=== PATIENT | female | born 1950 | race Caucasian/White ===

== ENCOUNTER 2018-04-04 17:21 | Emergency (ER) | payer OTHER, BC ==
[2018-04-04 19:28] LABS: Absolute Lymphocytes (CBC) 1.4 K/uL (0.7-4.9); Absolute Monocytes 0.6 K/uL (0.1-1.3); Absolute Neutrophil 3.6 K/uL (1.8-8.0); Basophils % 1.3 % (0-1.3); Hematocrit 38.6 % (36.0-45.0); Lymphocytes % 23.3 % (15.3-44.8); MCH 34.9 pg (27.0-35.0); MCV 101.5 fL (80-100); MPV 9.2 fL (7.6-11.3); Monocytes % 11.1 % (3.3-12.3); RBC Red Blood Cell Count 3.81 M/uL (3.86-4.86)
[2018-04-04 19:35] LABS: Barbiturates NEGATIVE (NEGATIVE); Benzodiazepines NEGATIVE (NEGATIVE); Cocaine NEGATIVE (NEGATIVE); METHAMPHETAM NEGATIVE (NEGATIVE); Opiates NEGATIVE (NEGATIVE); Phencyclidine NEGATIVE (NEGATIVE); THC Cannibis NEGATIVE (NEGATIVE)
[2018-04-04 19:38] LABS: Protime INR 1.05
--- NOTE | 2018-04-04 19:38 | RAD REPORT ---
EXAM DESCRIPTION: Lianet Single View04/04/2018 7:01 pm CLINICAL HISTORY: cough COMPARISON: 2011 FINDINGS: The lungs appear clear of acute infiltrate. The heart is probably upper limits normal IMPRESSION: No acute abnormalities displayed
[2018-04-04 19:41] LABS: Glucose Level 71 mg/dL (65-120)
--- NOTE | 2018-04-04 19:41 | RAD REPORT ---
EXAM DESCRIPTION: CT - Head Brain Wo Cont - 04/04/2018 7:26 pm CLINICAL HISTORY: Dizziness COMPARISON: February 2017 TECHNIQUE: Computed axial tomography of the head was obtained. IV contrast was not requested. All CT scans are performed using dose optimization technique as appropriate and may include automated exposure control or mA/KV adjustment according to patient size. FINDINGS: An intracranial bleed is not seen . The ventricles are normal in caliber. No extra-axial fluid collection is noted. Mild to moderate low-density areas within periventricular, deep and subcortical white matter likely represent ischemic changes secondary to small vessel disease . Fluid within the sinuses/ mastoids is not seen. IMPRESSION: No acute intracranial abnormality is seen. If patient's symptoms persist MRI of the bra in would be recommended.
[2018-04-04 19:47] LABS: ALT/SGPT 36 IU/L (10-60); AST/SGOT 52 IU/L (10-42); Albumin 4.5 g/dL (3.2-5.5); Alkaline Phosphatase 106 IU/L (42-121); BUN Blood Urea Nitrogen 24 mg/dL (6-20); Bilirubin Direct 0.2 mg/dL (0-0.2); Bilirubin Total 1.1 mg/dL (0.3-1.2); Creatine Phosphokinase 132 IU/L (22-269); Magnesium 1.7 mg/dL (1.8-2.5); Protein, Total 7.9 g/dL (6.0-8.3)
[2018-04-04] MEDS ORDERED: NA CHLORIDE 0.9% 1,000 ML ONE ×2 (19:48→20:18)
[2018-04-04 19:49] LABS: Bicarbonate 15 mEq/L (21-31); Potassium 4.6 mEq/L (3.6-5.0); Sodium Level 134 mEq/L (135-145)
[2018-04-04 19:50] LABS: CKMB Creatine Kinase MB 3.9 ng/ml (0.3-4.0)
[2018-04-04 19:54] LABS: Urine Blood NEGATIVE (NEG); Urine Glucose NEGATIVE (NEG); Urine Protein NEGATIVE (NEG)
[2018-04-04 19:57] LABS: Alcohol Serum/Plasma < 10 mg/dl
[2018-04-04] MEDS ORDERED: MAGNESIUM SULFATE 1 gm IVPB 1 GM/100 ML BAG IV ONE (20:17)
--- NOTE | 2018-04-04 21:02 | ER ---
Nurse's Notes [facility] Name: Ada Huerta Age: 67 yrs Sex: Female : 1950 Arrival Date: 04/04/2018 Time: 17:31 Bed 30 Private MD: Diagnosis: Altered mental status, unspecified Presentation: 04/04 17:44 Presenting complaint: EMS states: Pt. arrived by EMS from home... friend called 911. rk2 Pt. returned from a cruise ship where she was seen and dx with anxiety. Pt. states that she has been feeling anxious over that past few days. Pt. also wants to speak with a psychiatrist because she feels as if she isn't thinking normal... denies hearing voiced, visual disturbances, or thoughts of harming herself or others. She said that she has seen one in the past and feels that she could benefit from one now so that she can have home health assist her \T\ home. Transition of care: patient was not received from another setting of care. Onset of symptoms was April 04, 2018. Risk Assessment: Do you want to hurt yourself or someone else? Patient reports no desire to harm self or others. Initial Sepsis Screen: Does the patient meet any 2 criteria? No. Patient's initial sepsis screen is negative. Does the patient have a suspected source of infection? No. Patient's initial sepsis screen is negative. Care prior to arrival: IV initiated. 20 GA, in the right antecubital area. 17:44 Method Of Arrival: [facility]: [facility] 17:44 Acuity: ELIZ 2 rk2 17:44 Acuity: ELIZ 3 rk2 Triage Assessment: 18:00 General: Appears in no apparent distress. well developed, well nourished, Behavior is rk2 calm, cooperative. Pain: Denies pain. EENT: No signs and/or symptoms were reported regarding the EENT system. Neuro: Level of Consciousness is alert, obeys commands, Oriented to person, place, time, situation, Slow and methodical when answering questions. . 18:00 Cardiovascular: No deficits noted. Rhythm is sinus rhythm. Respiratory: No deficits rk2 noted. Airway is patent Respiratory effort is even, unlabored, Respiratory pattern is regular, symmetrical. GI: No signs and/or symptoms were reported involving the gastrointestinal system. Derm: Skin is pink, warm \T\ dry. Historical: - Allergies: 17:50 No Known Allergies; rk2 - PMHx: 17:50 Hypertension; Anxiety; rk2 - Immunization history:: Adult Immunizations unknown. - Ebola Screening: : Patient negative for fever greater than or equal to 101.5 degrees Fahrenheit, and additional compatible Ebola Virus Disease symptoms. - Family history:: not pertinent. - Social history:: Smoking status: unknown. Screenin:00 Abuse screen: Denies threats or abuse. rk2 18:00 Nutritional screening: No deficits noted. Tuberculosis screening: No symptoms or risk rk2 factors identified. Fall Risk Assessment: 18:00 Reassessment: Pt able to move all extremities, no noted facial droop or slurred speech. rk2 18:59 Reassessment: Called and spoke with Rosy Peterson regarding pt.... Per her rk2 friend/employee pt. is normally alert and oriented. This is not pt. normal behavior. Pt. sent her a text on Thursday; which made no sense to her friend and pt. sounded confused \T\ that time. Rosy spoke with pt. yesterday and pt. was talkative and sounded normal. Pt. was seen in [place] for feet swelling once she left her cruise early. 19:02 Reassessment: Rosy Peterson . Kelsey Rose . rk2 22:02 Reassessment: Called report to receiving RN... EMS called, pt. to be transported. rk2 22:24 Reassessment: EMS arrived, report and care turned over... pt. placed onto stretcher and rk2 transported. Vital Signs: 17:51 BP 113 / 89; Pulse 99; Resp 17; Temp 98.4; Pulse Ox 100% on R/A; rk2 19:00 BP 154 / 86; Pulse 86; Resp 18; Pulse Ox 100% on R/A; rk2 21:00 BP 151 / 88; Pulse 102; Resp 17; Pulse Ox 100% on R/A; rk2 22:00 BP 143 / 86; Pulse 99; Resp 17; Pulse Ox 100% on R/A; rk2 ED Course: 17:31 Patient arrived in ED. iw 17:44 Myrna Mao, RN is Primary Nurse. rk2 17:49 Triage completed. rk2 18:00 Patient has correct armband on for positive identification. Bed in low position. Call rk2 light in reach. Side rails up X2. conveyor monitor on. Pulse ox on. 18:00 Arm band placed on. rk2 18:03 EKG done, by ED staff. jb1 18:22 Rogelio Holman MD is Attending Physician. jerry 19:03 XRAY Chest (1 view) In Process Unspecified. EDMS 19:14 Kannan Mccollum PA is PHCP. jr8 19:[address] tl3 19:20 Inserted saline lock: 20 gauge in left forearm, using aseptic technique. Blood tl3 collected. 19:26 CT completed. Patient moved back from CT. cw1 19:26 CT Head Brain wo Cont In Process Unspecified. EDMS 21:14 Basic Metabolic Panel Sent. rk2 21:14 BNP Sent. rk2 21:14 Ckmb Sent. rk2 21:14 CBC with Diff Sent. rk2 21:14 CPK Sent. rk2 21:14 LFT's Sent. rk2 21:15 Magnesium Sent. rk2 21:15 PT-INR Sent. rk2 21:15 Ptt, Activated Sent. rk2 22:24 No provider procedures requiring assistance completed. Patient transferred, IV remains rk2 in place. Administered Medications: 19:54 Drug: NS 0.9% 1000 ml Route: IV; Rate: 1 bolus; Site: left forearm; Delivery: Primary tl3 tubing; 21:00 Follow up: Response: No adverse reaction; IV Status: Completed infusion rk2 20:30 Drug: NS 0.9% 1000 ml Route: IV; Rate: 125 ml/hr; Site: left antecubital; rk2 22:26 Follow up: Response: No adverse reaction; IV Status: Completed infusion rk2 20:30 Drug: Magnesium Sulfate 1 grams Route: IVPB; Infused Over: 1 hrs; Site: left rk2 antecubital; 21:30 Follow up: Response: No adverse reaction; IV Status: Completed infusion rk2 Outcome: 21:02 ER care complete, transfer ordered by . jr8 22:24 Transferred by ground EMS to [facility]. rk2 22:24 Condition: good 22:24 Instructed on the need for transfer. 22:40 Patient left the ED. rk2 Signatures: Dispatcher [employer] EDMS Alfonzo Murrell jb1 Rogelio Holman MD MD cha Williams, Irene, RN RN Laurel Beck cw1 Kannan Mccollum PA PA jr8 Myran Mao RN RN rk2 Sheyla Camara RN RN tl3 Corrections: (The following items were deleted from the chart) 18:13 17:44 Presenting complaint: EMS states: Pt. arrived by EMS from home... friend called rk2 911. Pt. returned from a cruise ship where she was seen and dx with anxiety. Pt. states that she has been feeling anxious over that past few days. Pt. also wants to speak with a psychiatrist because she feels as if she isn't thinking normal... denies hearing voiced, visual disturbances, or thoughts of harming herself or others. She said that she has seen one in the pasts and feels that she could benefit from one now so that she can have home health assist her \T\ home. rk2
--- NOTE | 2018-04-04 21:02 | EDPHYS ---
Physician Documentation [facility] Name: Ada Huerta Age: 67 yrs Sex: Female : 1950 Arrival Date: 04/04/2018 Time: 17:31 Bed 30 Private MD: ED Physician Rogelio Holman HPI: 04/04 18:46 This 67 yrs old Female presents to ER via EMS with complaints of ams and jerry confusion. 18:46 The patient presents with confusion. Onset: The symptoms/episode began/occurred at an [facility] unknown time. Possible causes: unknown. Associated signs and symptoms: The patient has no apparent associated signs or symptoms. Patient's baseline: Neuro: alert but confused, Motor: no deficits, Ambulation: walks without assistance, Speech: normal, The patient has a previous history of unk hx htn and hypothyroid. Historical: - Allergies: 17:50 No Known Allergies; rk2 - PMHx: 17:50 Hypertension; Anxiety; rk2 - Immunization history:: Adult Immunizations unknown. - Ebola Screening: : Patient negative for fever greater than or equal to 101.5 degrees Fahrenheit, and additional compatible Ebola Virus Disease symptoms. - Family history:: not pertinent. - Social history:: Smoking status: unknown. ROS: 18:46 Constitutional: Negative for fever, chills, and weight loss, Eyes: Negative for injury, jerry pain, redness, and discharge, ENT: Negative for injury, pain, and discharge, Neck: Negative for injury, pain, and swelling, Cardiovascular: Negative for chest pain, palpitations, and edema, Respiratory: Negative for shortness of breath, cough, wheezing, and pleuritic chest pain, Abdomen/GI: Negative for abdominal pain, nausea, vomiting, diarrhea, and constipation, Back: Negative for injury and pain, : Negative for injury, bleeding, discharge, and swelling, MS/Extremity: Negative for injury and deformity, Skin: Negative for injury, rash, and discoloration, Psych: Negative for depression, anxiety, suicide ideation, homicidal ideation, and hallucinations, Allergy/Immunology: Negative for hives, rash, and allergies, Endocrine: Negative for neck swelling, polydipsia, polyuria, polyphagia, and marked weight changes, Hematologic/Lymphatic: Negative for swollen nodes, abnormal bleeding, and unusual bruising. 18:46 Neuro: Positive for altered mental status. Exam: 18:46 Constitutional: This is a well developed, well nourished patient who is awake, alert, jerry and in no acute distress. Head/Face: Normocephalic, atraumatic. Eyes: Pupils equal round and reactive to light, extra-ocular motions intact. Lids and lashes normal. Conjunctiva and sclera are non-icteric and not injected. Cornea within normal limits. Periorbital areas with no swelling, redness, or edema. ENT: Nares patent. No nasal discharge, no septal abnormalities noted. Tympanic membranes are normal and external auditory canals are clear. Oropharynx with no redness, swelling, or masses, exudates, or evidence of obstruction, uvula midline. Mucous membranes moist. Neck: Trachea midline, no thyromegaly or masses palpated, and no cervical lymphadenopathy. Supple, full range of motion without nuchal rigidity, or vertebral point tenderness. No Meningismus. Chest/axilla: Normal chest wall appearance and motion. Nontender with no deformity. No lesions are appreciated. Cardiovascular: Regular rate and rhythm with a normal S1 and S2. No gallops, murmurs, or rubs. Normal PMI, no JVD. No pulse deficits. Respiratory: Lungs have equal breath sounds bilaterally, clear to auscultation and percussion. No rales, rhonchi or wheezes noted. No increased work of breathing, no retractions or nasal flaring. Abdomen/GI: Soft, non-tender, with normal bowel sounds. No distension or tympany. No guarding or rebound. No evidence of tenderness throughout. Back: No spinal tenderness. No costovertebral tenderness. Full range of motion. Female : Normal external genitalia. Skin: Warm, dry with normal turgor. Normal color with no rashes, no lesions, and no evidence of cellulitis. MS/ Extremity: Pulses equal, no cyanosis. Neurovascular intact. Full, normal range of motion. Psych: Awake, alert, with orientation to person, place and time. Behavior, mood, and affect are within normal limits. 18:46 Neuro: Orientation: to person, place, Not oriented to place, time, Mentation: slow to respond, Memory: immediate memory is impaired, remote memory is impaired, recent memory is impaired, Cerebellar function: is grossly normal, is grossly normal based on the patient's age, no acute changes, Motor: moves all fours, Sensation: is normal, no obvious gross deficits, appropriate Gait: not tested. Deep tendon reflexes are 2+ (normal) in the bilateral brachioradialis, bicep, tricep and patellar and Achilles tendons, seizure activity, is not displayed by the patient. Vital Signs: 17:51 BP 113 / 89; Pulse 99; Resp 17; Temp 98.4; Pulse Ox 100% on R/A; rk2 19:00 BP 154 / 86; Pulse 86; Resp 18; Pulse Ox 100% on R/A; rk2 21:00 BP 151 / 88; Pulse 102; Resp 17; Pulse Ox 100% on R/A; rk2 22:00 BP 143 / 86; Pulse 99; Resp 17; Pulse Ox 100% on R/A; rk2 MDM: 18:22 Patient medically screened. [facility] 20:21 Data reviewed: vital signs, nurses notes, lab test result(s), EKG, radiologic studies, jr8 CT scan, plain films. Data interpreted: Pulse oximetry: on room air is 100 %. Interpretation: normal. Counseling: I had a detailed discussion with the patient and/or guardian regarding: the historical points, exam findings, and any diagnostic results supporting the discharge/admit diagnosis, lab results, radiology results, the need to transfer to another facility. 20:49 ED course: I evaluated patient after she was handed over to me. Patient has trouble jr8 with thought process. Frequently stutters. Gets off track with topic. Cannot formulate some sentences. Past history seems intact. Current problems and memory impaired. Talked to Nurse who was able to talk to employee of patient. Stated that this is very uncharacteristic of her. 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 04/04 18:28 Order name: Basic Metabolic Panel 04/04 18:28 Order name: BNP [facility] 04/04 18:28 Order name: CBC with Diff 04/04 18:28 Order name: Ckmb 04/04 18:28 Order name: CPK [facility] 04/04 18:28 Order name: LFT's [facility] 04/04 18:28 Order name: Magnesium [facility] 04/04 18:28 Order name: PT-INR [facility] 04/04 18:28 Order name: Ptt, Activated 04/04 18:28 Order name: Troponin (emerg Dept Use Only); Complete Time: 20:11 [facility] 10 18:28 Order name: Acetaminophen; Complete Time: 20:11 [facility] 10 18:28 Order name: ETOH Level; Complete Time: 20:11 [facility] 04/04 18:28 Order name: Salicylate; Complete Time: 20:22 [facility] 04/04 18:28 Order name: Urine Drug Screen; Complete Time: 20:11 [facility] 04/04 18:28 Order name: XRAY Chest (1 view); Complete Time: 19:41 [facility] 04/04 18:28 Order name: CT Head Brain wo Cont; Complete Time: 19:41 [facility] 04/04 18:28 Order name: Urine Culture [facility] 04/04 18:28 Order name: Basic Metabolic Panel; Complete Time: 20:11 [facility] 10 18:28 Order name: BNP B-Type Natriuretic Peptide; Complete Time: 20:11 [facility] 04/04 18:28 Order name: CBC with Automated Diff; Complete Time: 19:41 [facility] 10 18:29 Order name: CKMB Creatine Kinase MB; Complete Time: 20:11 [facility] 04/04 18:29 Order name: Creatine Phosphokinase; Complete Time: 20:11 [facility] 10 18:29 Order name: Liver (Hepatic) Function; Complete Time: 20:11 [facility] 0610 18:29 Order name: Magnesium; Complete Time: 20:11 [facility] 10 18:29 Order name: Protime (+INR); Complete Time: 19:41 [facility] 10 18:29 Order name: PTT, Activated Partial Thromb; Complete Time: 19:41 [facility] 10 19:26 Order name: Urine Dipstick--Ancillary (enter results); Complete Time: 20:11 [facility] 04/04 18:28 Order name: EKG; Complete Time: 18:29 [facility] 04/04 18:28 Order name: Cardiac monitoring; Complete Time: 19:28 [facility] 04/04 18:28 Order name: EKG - Nurse/Tech; Complete Time: 19:28 [facility] 04/04 18:28 Order name: IV Saline Lock; Complete Time: 19:19 [facility] 04/04 18:28 Order name: Labs collected and sent; Complete Time: 19:19 [facility] 04/04 18:28 Order name: O2 Per Protocol; Complete Time: 19:19 [facility] 04/04 18:28 Order name: O2 Sat Monitoring; Complete Time: 19:19 [facility] 04/04 18:28 Order name: Urine Dipstick-Ancillary (obtain specimen); Complete Time: 19:20 [facility] Administered Medications: 19:54 Drug: NS 0.9% 1000 ml Route: IV; Rate: 1 bolus; Site: left forearm; Delivery: Primary tl3 tubing; 21:00 Follow up: Response: No adverse reaction; IV Status: Completed infusion rk2 20:30 Drug: NS 0.9% 1000 ml Route: IV; Rate: 125 ml/hr; Site: left antecubital; rk2 22:26 Follow up: Response: No adverse reaction; IV Status: Completed infusion rk2 20:30 Drug: Magnesium Sulfate 1 grams Route: IVPB; Infused Over: 1 hrs; Site: left rk2 antecubital; 21:30 Follow up: Response: No adverse reaction; IV Status: Completed infusion rk2 Disposition: 04/05 09:07 Co-signature as Attending Physician, Rogelio Holman MD I agree with the assessment and [facility] plan of care. Disposition: 04/04/18 21:[address] [facility]. Diagnosis is Altered mental status, unspecified. - Reason for transfer: Higher level of care. - Accepting physician is Dr. Alfaro . - Condition is Stable. - Problem is new. - Symptoms are unchanged. Signatures: Dispatcher [employer] EDRogelio Khan MD MD cha Roszak, Josh, PA PA jr8 Myrna Mao RN RN rk2 Sheyla Camara RN RN tl3 Corrections: (The following items were deleted from the chart) 04/04 22:40 21:02 04/04/2018 21:[address] [facility]. Diagnosis is rk2 Altered mental status, unspecified. Reason for transfer: Higher level of care. Accepting physician is Dr. Alfaro . Condition is Stable. Problem is new. Symptoms are unchanged. jr8
[2018-04-04 23:30] VITALS: TEMP 98.4; O2SAT 100
[2018-04-04 23:43] VITALS: BP 143/86
--- NOTE | 2018-04-05 06:29 | EKG ---
Test Date: 2018-04-04 Test Time: 17:38:55 Test Kitchen Home Economist: VICKIE MEASUREMENT RESULTS: Intervals: Rate: 100 CO: 136 QRSD: 82 QT: 352 QTc: 454 Malone: P: 71 CO: 136 QRS: 56 T: 59 INTERPRETIVE STATEMENTS: Normal sinus rhythm Normal ECG Compared to ECG 08/08/2012 15:45:01 No significant changes Electronically Signed On 04-05-18 06:28:34 CDT by Chay Foreman
== END 2018-04-04 22:40 | disposition short-term general hospital (02) ==
LOC: ER 17:21
DX: R41.82 Altered mental status, unspecified (principal); I10 Essential (primary) hypertension; F41.9 Anxiety disorder, unspecified
CPT/HCPCS: 36415; 70450; 71045; 80048; 80076; 80307 ×9; 80320; 80329 ×2; 81003; 82550; 82553; 83735; 83880; 84484; 85025; 85610; 85730; 87086; 87088; 93005; J3475; J7030 ×2; 96361; 96365; 99285

== ENCOUNTER 2018-06-05 14:46 | Emergency (ER) | payer OTHER, BC ==
--- OUTSIDE RECORDS SUMMARY | 2018-06-05 14:48 | XMS REPORT | Clinical Summary ---
:1950 Author Organization [facility] Address [address] [place] [address] Phone Care Team Providers Name Role Phone Unavailable Primary Care Provider Unavailable Allergies No Known Allergies Current Medications Prescription Sig. Disp. Refills Start End Date Status Date amLODIPine (NORVASC) 5 Take 5 mg by Active MG tablet mouth daily. hydroCHLOROthiazide Take 12.5 mg Active (HYDRODIURIL) 12.5 MG by mouth tablet daily. levothyroxine Take 50 mcg Active (SYNTHROID, LEVOTHROID) by mouth 50 MCG tablet Every morning on an empty stomach. lisinopril Take 40 mg Active (PRINIVIL,ZESTRIL) 40 MG by mouth tablet daily. oxybutynin (DITROPAN-XL) Take 5 mg by Active 5 MG 24 hr tablet mouth daily. valproic acid (DEPAKENE) Take 1 90 capsule 0 04/06/04/06/20 Active 250 mg capsule capsule (250 8 19 mg total) by mouth every 8 (eight) hours. diazePAM (VALIUM) 5 MG Take 1 30 tablet 0 04/06/20 Discontinued tablet tablet (5 mg 8 18 total) by mouth every 6 (six) hours as needed for Anxiety for up to 10 days. Max Daily Amount: 20 mg valproic acid (DEPAKENE) Take 1 90 capsule 0 04/06/04/06/20 Discontinued 250 mg capsule capsule (250 8 18 mg total) by mouth every 8 (eight) hours. diazePAM (VALIUM) 5 MG Take 1 30 tablet 0 04/06/04/16/20 tablet tablet (5 mg 8 18 total) by mouth every 6 (six) hours as needed for Anxiety for up to 10 days. Max Daily Amount: 20 mg Active Problems Problem Noted Date Hypomania (HCC) 04/05/2018 Speech abnormality 04/05/2018 Essential hypertension 04/05/2018 Other specified hypothyroidism 04/05/2018 Bipolar disorder with severe meir (HCC) 04/05/2018 Encounters Date Type Specialty Care Team Description 04/26/2018 Emergency Emergency Alexander, Swelling of both lower Medicine Ronald Marquez MD extremities (Primary Dx);Bipolar 1 disorder (HCC);Essential hypertension 04/04/2018 - Hospital Encounter General Internal Aurelia, Ailyn Essential hypertension 04/07/2018 Medicine Laurence Pérez, (Primary Dx);Hypomania ([facility]);Other specified Athreya, hypothyroidism;Speech Joce Garces MD disturbance, unspecified type;Altered mental status, unspecified altered mental status type;Tremor;Acute encephalopathy;Bipolar disorder with severe meir (HCC);BOBO (acute kidney injury) ([facility]);Acute nonintractable headache, unspecified headache type;Bipolar 1 disorder, mixed, severe ([facility]) after 06/04/2017 Social History Tobacco Use Types Packs/Day Years Used Date Never Smoker Smokeless Tobacco: Never Used Alcohol Use Drinks/Week oz/Week Comments Yes Sex Assigned at Date Recorded Not on file Last Filed Vital Signs Vital Sign Reading Time Taken Blood Pressure 135/78 04/26/2018 9:21 PM CDT Pulse 84 04/26/2018 9:21 PM CDT Temperature 36.4 C (97.6 F) 04/26/2018 9:21 PM CDT Respiratory Rate 18 04/26/2018 9:21 PM CDT Oxygen Saturation 98% 04/26/2018 5:50 PM CDT Inhaled Oxygen Concentration - - Weight 54.4 kg (120 lb) 04/26/2018 5:50 PM CDT Height 160 cm (5' 3") 04/26/2018 5:50 PM CDT Body Mass Index 21.26 04/26/2018 5:50 PM CDT Plan of Treatment Not on file Results CBC with platelet count + automated diff (04/26/2018 6:20 PM)Only the most recent of4 resultswithin the time period is included. Component Value Ref Range WBC 6.7 3.5 - 10.5 K/L RBC 3.17 (L) 3.93 - 5.22 M/L Hemoglobin 10.9 (L) 11.2 - 15.7 GM/DL Hematocrit 32.2 (L) 34.1 - 44.9 % MCV 101.6 (H) 79.4 - 94.8 fL MCH 34.4 (H) 25.6 - 32.2 pg MCHC 33.9 32.2 - 35.5 GM/DL RDW 12.0 11.7 - 14.4 % Platelets 106 (L) 150 - 450 K/CU MM MPV 12.1 9.4 - 12.3 fL nRBC 0 0 - 0 /100 WBC % Neutros 52 % % Lymphs 30 % % Monos 11 % % Eos 6 % % Baso 1 % # Neutros 3.49 1.56 - 6.13 K/L # Lymphs 1.98 1.18 - 3.74 K/L # Monos 0.73 (H) 0.24 - 0.36 K/L # Eos 0.37 (H) 0.04 - 0.36 K/L # Baso 0.06 0.01 - 0.08 K/L Immature Granulocytes-Relative 0 0 - 1 % Specimen Performing Laboratory Blood - Arm, [address] [address] CBC with platelet count + automated diff (04/26/2018 6:20 PM)Only the most recent of4 resultswithin the time period is included. Specimen Performing Laboratory Blood Narrative The following orders were created for panel order CBC with platelet count + automated diff. Procedure Abnormality Status --------- ------ CBC with platelet count ...[[id number]]AbnormalFinal result Please view results for these tests on the individual orders. B-type natriuretic peptide (04/26/2018 6:20 PM) Component Value Ref Range BNP 179 (H) 0 - 100 pg/mL Specimen Performing Laboratory Blood - Arm, [address] [address] Basic metabolic panel (Na, K+, Cl, CO2, Glu, Ca, BUN, Cr) (04/26/2018 6:20 PM) Only the most recent of4 resultswithin the time period is included. Component Value Ref Range Sodium 135 (L) 136 - 145 meq/L Potassium 4.4 3.5 - 5.1 meq/L Chloride 101 98 - 107 meq/L CO2 23 22 - 29 meq/L BUN 33 (H) 7 - 21 mg/dL Creatinine 1.26 (H) 0.57 - 1.25 mg/dL Glucose 70 70 - 105 mg/dL Calcium 9.8 8.4 - 10.2 mg/dL EGFR Comment: INSUFFICIENT CLINICAL DATA TO CALCULATE mL/min/1.73 sq m ESTIMATED GFR. Specimen Performing Laboratory Blood - Arm, [address] [address] RHYTHM STRIP - SCAN (04/08/2018 3:00 PM)Magnesium (04/07/2018 4:00 AM)Only the most recent of3 resultswithin the time period is included. Component Value Ref Range Magnesium 1.9 1.6 - 2.6 mg/dL Specimen Performing Laboratory Blood - Arm, [address] [address] Hepatic function panel (04/07/2018 4:00 AM)Only the most recent of3 resultswithin the time period is included. Component Value Ref Range Protein, Total 6.9 6.0 - 8.3 gm/dL Albumin 3.9 3.5 - 5.0 g/dL Total Bilirubin 0.6 0.2 - 1.2 mg/dL Bilirubin, Direct 0.2 0.1 - 0.5 mg/dL Alkaline Phosphatase 87 40 - 150 U/L AST 28 5 - 34 U/L ALT 22 6 - 55 U/L Specimen Performing Laboratory Blood - Arm, [address] [address] EEG AWAKE AND DROWSY (04/06/2018 10:55 AM) Specimen Performing Laboratory GE RIS Narrative Date(s) of EE04/06/2018 DATE OF REPORT: 04/06/2018 ACC: [id number] EEG Number: [id number] Test Location: Inpatient Room. Start time: 10:33 Stop time: 10:55 ICD-10: R41.82 CPT Code: 39925 HISTORY: 67 y.o. F with PMH of anxiety, bipolar? HTN, hypothyroidism presents with approximately one week history of AMS. MEDICATIONS THAT COULD AFFECT EEG: None TECHNICAL SUMMARY: This is a digital video-EEG recorded with 32 input channels reviewed with bipolar and referential montages using the modified combinatorial system nomenclature. DESCRIPTION OF RECORD: During the maximally alert state a 11-12 Hz posterior dominant rhythm was seen that was symmetric, reactive to eye opening and well regulated.More anteriorly, low voltage frontocentral beta predominated.Drowsiness was characterized by alpha attenuation and increased frontocentral theta.Stage 2 sleep was not reached. SIGNIFICANT VIDEO EVENTS: None SIGNIFICANT ELECTROCARDIOGRAM EVENTS: None HV: Hyperventilation was not performed. PHOTIC STIMULATION: Photic stimulation was done from 3-18 Hz; no photic driving was seen; photoparoxysmal responses were absent. IMPRESSION: Normal Awake and Drowsy EEG Harlan Dozier MD Neurophysiology Fellow, PGY5 Carter Hopper MD Neurophysiology Attending Procedure Note Interface, External Ris In - 04/06/2018 5:51 PM CDT Date(s) of EE04/06/2018 DATE OF REPORT: 04/06/2018 ACC: [id number] EEG Number: [id number] Test Location: Inpatient Room. Start time: 10:33 Stop time: 10:55 ICD-10: R41.82 CPT Code: 64131 HISTORY: 67 y.o. F with PMH of anxiety, bipolar? HTN, hypothyroidism presents with approximately one week history of AMS. MEDICATIONS THAT COULD AFFECT EEG: None TECHNICAL SUMMARY: This is a digital video-EEG recorded with 32 input channels reviewed with bipolar and referential montages using the modified combinatorial system nomenclature. DESCRIPTION OF RECORD: During the maximally alert state a 11-12 Hz posterior dominant rhythm was seen that was symmetric, reactive to eye opening and well regulated. More anteriorly, low voltage frontocentral beta predominated. Drowsiness was characterized by alpha attenuation and increased frontocentral theta. Stage 2 sleep was not reached. SIGNIFICANT VIDEO EVENTS: None SIGNIFICANT ELECTROCARDIOGRAM EVENTS: None HV: Hyperventilation was not performed. PHOTIC STIMULATION: Photic stimulation was done from 3-18 Hz; no photic driving was seen; photoparoxysmal responses were absent. IMPRESSION: Normal Awake and Drowsy EEG Harlan Dozier MD Neurophysiology Fellow, PGY5 Carter Hopper MD Neurophysiology Attending Lactic acid, venous, whole blood (04/06/2018 6:25 AM) Component Value Ref Range Lactate, Venous 0.6 0.5 - 2.2 mmol/L Specimen Performing Laboratory Blood - Arm, [address] [address] Narrative Effective 02/27/2016: Units/Reference Range Change New: 0.5-2.2 mmol/LPrevious: 5-20 mg/dL Urinalysis w/Microscopic + Reflex to Culture (04/05/2018 6:27 AM) Component Value Ref Range Color, UA Light Yellow Clarity, UA Clear Specific [place], UA 1.007 1.001 - 1.035 pH, UA 5.0 5.0 - 8.0 Protein, UA Negative Negative Glucose, UA Negative Negative Ketones, UA 10 mg/dL (A) Negative Bilirubin, UA Negative Negative Blood, UA Negative Negative Nitrite, UA Negative Negative Leukocytes, UA Negative Negative Urobilinogen, UA 0.2 0.2 - 1.0 mg/dL RBC, UA 0 /HPF WBC, UA <1 /HPF Mucus Rare Squam Epithel, UA <1 /HPF Specimen Source Specimen Performing Laboratory Urine - Urine, [address] [address] Sodium, random urine (04/05/2018 6:27 AM) Component Value Ref Range Sodium Urine 113 meq/L Specimen Performing Laboratory Urine - Urine, [address] [address] Narrative Reference Range: No Normals Creatinine, random urine (04/05/2018 6:27 AM) Component Value Ref Range Creatinine, Ur 40.2 mg/dL Specimen Performing Laboratory Urine - Urine, Void[address] [address] Narrative Reference Range: No Normals TSH/Free T4 If Indicated (04/05/2018 4:45 AM) Component Value Ref Range TSH 1.57 0.35 - 4.94 uIU/mL Specimen Performing Laboratory Blood - Arm, [address] [address] RPR (04/05/2018 4:45 AM) Component Value Ref Range RPR Nonreactive Nonreactive Specimen Performing Laboratory Blood - Arm, Left [facility] [address] after 06/04/2017
--- OUTSIDE RECORDS SUMMARY | 2018-06-05 14:49 | XMS REPORT ---
:1950 [facility] Address [address] [place] [address] Care Team Providers Name Role Phone ROSSI LUU ANNA Unavailable Unavailable DENG LAGUERRE Unavailable Unavailable Problems This patient has no known problems. Allergies, Adverse Reactions, Alerts This patient has no known allergies or adverse reactions. Medications This patient has no known medications. Results Test Description Test Time Test Comments Text Results Atomic Results Result Comments B-TYPE NATRIURETIC FACTOR (BNP) 2018-04-26 18:58:00 Test Item Value Reference Range Comments B-TYPE NATRIURETIC PEPTIDE (BEAKER) (test odii=947) 179 pg/mL 0-100 BASIC METABOLIC [id number] 18:57:00 Test Item Value Reference Range Comments SODIUM (BEAKER) (test 135 meq/L 136-145 yryl=329) POTASSIUM (BEAKER) (test 4.4 meq/L 3.5-5.1 ensy=714) CHLORIDE (BEAKER) (test 101 meq/L 98-107 xpgn=196) CO2 (BEAKER) (test 23 meq/L 22-29 hzci=680) BLOOD UREA NITROGEN 33 mg/dL 7-21 (BEAKER) (test vmlz=749) CREATININE (BEAKER) (test 1.26 mg/dL 0.57-1.25 yuwb=577) GLUCOSE RANDOM (BEAKER) 70 mg/dL 70-105 (test glct=416) CALCIUM (BEAKER) (test 9.8 mg/dL 8.4-10.2 gdlh=247) EGFR (BEAKER) (test mL/min/1.73 sq m INSUFFICIENT CLINICAL DATA tbmy=7007) TO CALCULATE ESTIMATED GFR. CBC W/PLT COUNT & AUTO [id number] 18:26:00 Test Item Value Reference Range Comments WHITE BLOOD CELL COUNT (BEAKER) (test adux=290) 6.7 K/ L 3.5-10.5 RED BLOOD CELL COUNT (BEAKER) (test afrs=980) 3.17 M/ L 3.93-5.22 HEMOGLOBIN (BEAKER) (test nmoc=026) 10.9 GM/DL 11.2-15.7 HEMATOCRIT (BEAKER) (test sgtw=314) 32.2 % 34.1-44.9 MEAN CORPUSCULAR VOLUME (BEAKER) (test ielv=792) 101.6 fL 79.4-94.8 MEAN CORPUSCULAR HEMOGLOBIN (BEAKER) (test 34.4 pg 25.6-32.2 nfgg=361) MEAN CORPUSCULAR HEMOGLOBIN CONC (BEAKER) (test 33.9 GM/DL 32.2-35.5 uilh=582) RED CELL DISTRIBUTION WIDTH (BEAKER) (test 12.0 % 11.7-14.4 dzut=784) PLATELET COUNT (BEAKER) (test npea=072) 106 K/CU MM 150-450 MEAN PLATELET VOLUME (BEAKER) (test bbxn=477) 12.1 fL 9.4-12.3 NUCLEATED RED BLOOD CELLS (BEAKER) (test 0 /100 WBC 0-0 jfqy=943) NEUTROPHILS RELATIVE PERCENT (BEAKER) (test 52 % qgkv=511) LYMPHOCYTES RELATIVE PERCENT (BEAKER) (test 30 % byru=855) MONOCYTES RELATIVE PERCENT (BEAKER) (test 11 % mlei=358) EOSINOPHILS RELATIVE PERCENT (BEAKER) (test 6 % wrey=753) BASOPHILS RELATIVE PERCENT (BEAKER) (test 1 % zhyt=961) NEUTROPHILS ABSOLUTE COUNT (BEAKER) (test 3.49 K/ L 1.56-6.13 blzv=796) LYMPHOCYTES ABSOLUTE COUNT (BEAKER) (test 1.98 K/ L 1.18-3.74 bcqc=491) MONOCYTES ABSOLUTE COUNT (BEAKER) (test 0.73 K/ L 0.24-0.36 fvqi=776) EOSINOPHILS ABSOLUTE COUNT (BEAKER) (test 0.37 K/ L 0.04-0.36 ufyy=712) BASOPHILS ABSOLUTE COUNT (BEAKER) (test 0.06 K/ L 0.01-0.08 vhwg=475) IMMATURE GRANULOCYTES-RELATIVE PERCENT (BEAKER) 0 % 0-1 (test kxgb=9806) BASIC METABOLIC [id number] 05:31:00 Test Item Value Reference Range Comments SODIUM (BEAKER) (test 141 meq/L 136-145 xebf=621) POTASSIUM (BEAKER) (test 4.7 meq/L 3.5-5.1 huwx=341) CHLORIDE (BEAKER) (test 107 meq/L 98-107 rgij=489) CO2 (BEAKER) (test 24 meq/L 22-29 pnxt=496) BLOOD UREA NITROGEN 24 mg/dL 7-21 (BEAKER) (test ilth=167) CREATININE (BEAKER) (test 1.10 mg/dL 0.57-1.25 ttsm=081) GLUCOSE RANDOM (BEAKER) 96 mg/dL 70-105 (test fpwz=002) CALCIUM (BEAKER) (test 10.0 mg/dL 8.4-10.2 hfwj=295) EGFR (BEAKER) (test mL/min/1.73 sq m INSUFFICIENT CLINICAL DATA gcyt=6083) TO CALCULATE ESTIMATED GFR. [id number] 05:20:00 Test Item Value Reference Range Comments MAGNESIUM (BEAKER) (test itpi=497) 1.9 mg/dL 1.6-2.6 HEPATIC FUNCTION [id number] 05:20:00 Test Item Value Reference Range Comments TOTAL PROTEIN (BEAKER) (test kyvw=632) 6.9 gm/dL 6.0-8.3 ALBUMIN (BEAKER) (test bsvx=3730) 3.9 g/dL 3.5-5.0 BILIRUBIN TOTAL (BEAKER) (test zoen=656) 0.6 mg/dL 0.2-1.2 BILIRUBIN DIRECT (BEAKER) (test xkjv=128) 0.2 mg/dL 0.1-0.5 ALKALINE PHOSPHATASE (BEAKER) (test zfpi=275) 87 U/L 40-150 AST (SGOT) (BEAKER) (test bsxr=433) 28 U/L 5-34 ALT (SGPT) (BEAKER) (test voac=441) 22 U/L 6-55 CBC W/PLT COUNT & AUTO [id number] 04:49:00 Test Item Value Reference Range Comments WHITE BLOOD CELL COUNT (BEAKER) (test sepr=095) 4.9 K/ L 3.5-10.5 RED BLOOD CELL COUNT (BEAKER) (test qfmc=321) 3.66 M/ L 3.93-5.22 HEMOGLOBIN (BEAKER) (test mfoj=376) 12.5 GM/DL 11.2-15.7 HEMATOCRIT (BEAKER) (test jbxo=813) 37.8 % 34.1-44.9 MEAN CORPUSCULAR VOLUME (BEAKER) (test baxa=417) 103.3 fL 79.4-94.8 MEAN CORPUSCULAR HEMOGLOBIN (BEAKER) (test 34.2 pg 25.6-32.2 kiqq=911) MEAN CORPUSCULAR HEMOGLOBIN CONC (BEAKER) (test 33.1 GM/DL 32.2-35.5 sfby=807) RED CELL DISTRIBUTION WIDTH (BEAKER) (test 12.9 % 11.7-14.4 iyjp=218) PLATELET COUNT (BEAKER) (test eujv=513) 237 K/CU MM 150-450 MEAN PLATELET VOLUME (BEAKER) (test pxli=162) 10.2 fL 9.4-12.3 NUCLEATED RED BLOOD CELLS (BEAKER) (test 0 /100 WBC 0-0 pjjx=357) NEUTROPHILS RELATIVE PERCENT (BEAKER) (test 47 % oevf=843) LYMPHOCYTES RELATIVE PERCENT (BEAKER) (test 31 % bdfh=901) MONOCYTES RELATIVE PERCENT (BEAKER) (test 14 % biyk=002) EOSINOPHILS RELATIVE PERCENT (BEAKER) (test 6 % elhq=361) BASOPHILS RELATIVE PERCENT (BEAKER) (test 1 % htff=410) NEUTROPHILS ABSOLUTE COUNT (BEAKER) (test 2.27 K/ L 1.56-6.13 vjes=314) LYMPHOCYTES ABSOLUTE COUNT (BEAKER) (test 1.52 K/ L 1.18-3.74 bulh=102) MONOCYTES ABSOLUTE COUNT (BEAKER) (test 0.70 K/ L 0.24-0.36 nfsk=731) EOSINOPHILS ABSOLUTE COUNT (BEAKER) (test 0.29 K/ L 0.04-0.36 rcob=086) BASOPHILS ABSOLUTE COUNT (BEAKER) (test 0.07 K/ L 0.01-0.08 stdh=780) IMMATURE GRANULOCYTES-RELATIVE PERCENT (BEAKER) 0 % 0-1 (test usbs=3403) EEG AWAKE AND [id number] 17:51:00Reason for exam:->altered mental status, new tremorsDate(s) of EE04/06/2018 DATE OF REPORT: 04/06/2018 ACC: [id number] EEG Number: [id number] Test Location: Inpatient Room. Start time: 10:33 Stop time: 10:55 ICD-10: R41.82 CPT Code: 40295 HISTORY: 67 y.o. F with PMH of anxiety, bipolar? HTN, hypothyroidism presents with approximately one week history of AMS. MEDICATIONS THAT COULD AFFECT EEG: None TECHNICAL SUMMARY: This is a digital video-EEG recorded with 32 input channels reviewed with bipolar and referential montages using the modified combinatorial system nomenclature. DESCRIPTION OF RECORD: During the maximally alert state a 11- 12 Hz posterior dominant rhythm was seen that was symmetric, reactive to eye opening and well regulated. More anteriorly, low voltage frontocentral beta predominated. Drowsiness was characterized by alpha attenuation and increased frontocentral theta. Stage 2 sleep was not reached. SIGNIFICANT VIDEO EVENTS : None SIGNIFICANT ELECTROCARDIOGRAM EVENTS: None HV: Hyperventilation was not performed. PHOTIC STIMULATION: Photic stimulation was done from 3-18 Hz; no photic driving was seen; photoparoxysmalresponses were absent. IMPRESSION: Normal Awake and Drowsy EEG Harlan Dozier MD Neurophysiology Fellow, PGY5 Carter Argueta MD Neurophysiology Attending CBC W/PLT COUNT & AUTO [id number] 08:06:00 Test Item Value Reference Range Comments WHITE BLOOD CELL COUNT (BEAKER) (test psqe=097) 4.3 K/ L 3.5-10.5 RED BLOOD CELL COUNT (BEAKER) (test kwke=140) 3.23 M/ L 3.93-5.22 HEMOGLOBIN (BEAKER) (test mjjj=028) 11.2 GM/DL 11.2-15.7 HEMATOCRIT (BEAKER) (test tfow=183) 32.8 % 34.1-44.9 MEAN CORPUSCULAR VOLUME (BEAKER) (test rljw=396) 101.5 fL 79.4-94.8 MEAN CORPUSCULAR HEMOGLOBIN (BEAKER) (test 34.7 pg 25.6-32.2 pvxw=324) MEAN CORPUSCULAR HEMOGLOBIN CONC (BEAKER) (test 34.1 GM/DL 32.2-35.5 rbaw=133) RED CELL DISTRIBUTION WIDTH (BEAKER) (test 12.8 % 11.7-14.4 pkrk=328) PLATELET COUNT (BEAKER) (test bntb=397) 196 K/CU MM 150-450 MEAN PLATELET VOLUME (BEAKER) (test vgmx=549) 10.3 fL 9.4-12.3 NUCLEATED RED BLOOD CELLS (BEAKER) (test 0 /100 WBC 0-0 usrd=214) NEUTROPHILS RELATIVE PERCENT (BEAKER) (test 47 % ejzu=874) LYMPHOCYTES RELATIVE PERCENT (BEAKER) (test 30 % immb=523) MONOCYTES RELATIVE PERCENT (BEAKER) (test 16 % mvxt=923) EOSINOPHILS RELATIVE PERCENT (BEAKER) (test 5 % quxp=576) BASOPHILS RELATIVE PERCENT (BEAKER) (test 2 % ohiy=930) NEUTROPHILS ABSOLUTE COUNT (BEAKER) (test 2.01 K/ L 1.56-6.13 agfq=117) LYMPHOCYTES ABSOLUTE COUNT (BEAKER) (test 1.29 K/ L 1.18-3.74 atrr=392) MONOCYTES ABSOLUTE COUNT (BEAKER) (test 0.70 K/ L 0.24-0.36 tpjh=637) EOSINOPHILS ABSOLUTE COUNT (BEAKER) (test 0.22 K/ L 0.04-0.36 aysn=248) BASOPHILS ABSOLUTE COUNT (BEAKER) (test 0.07 K/ L 0.01-0.08 pdxr=937) IMMATURE GRANULOCYTES-RELATIVE PERCENT (BEAKER) 1 % 0-1 (test oocf=9505) BASIC METABOLIC [id number] 07:23:00 Test Item Value Reference Range Comments SODIUM (BEAKER) (test 138 meq/L 136-145 bmlc=928) POTASSIUM (BEAKER) (test 4.3 meq/L 3.5-5.1 flhx=606) CHLORIDE (BEAKER) (test 109 meq/L 98-107 qotf=339) CO2 (BEAKER) (test 20 meq/L 22-29 pkgx=680) BLOOD UREA NITROGEN 29 mg/dL 7-21 (BEAKER) (test ejkr=529) CREATININE (BEAKER) (test 1.19 mg/dL 0.57-1.25 uzan=334) GLUCOSE RANDOM (BEAKER) 98 mg/dL 70-105 (test emsg=417) CALCIUM (BEAKER) (test 8.9 mg/dL 8.4-10.2 bpze=195) EGFR (BEAKER) (test mL/min/1.73 sq m INSUFFICIENT CLINICAL DATA jsnh=5212) TO CALCULATE ESTIMATED GFR. [id number] 07:21:00 Test Item Value Reference Range Comments MAGNESIUM (BEAKER) (test fosn=366) 1.6 mg/dL 1.6-2.6 HEPATIC FUNCTION [id number] 07:21:00 Test Item Value Reference Range Comments TOTAL PROTEIN (BEAKER) (test wmls=865) 6.4 gm/dL 6.0-8.3 ALBUMIN (BEAKER) (test jazq=8496) 3.6 g/dL 3.5-5.0 BILIRUBIN TOTAL (BEAKER) (test gebn=537) 0.4 mg/dL 0.2-1.2 BILIRUBIN DIRECT (BEAKER) (test hxjr=530) 0.2 mg/dL 0.1-0.5 ALKALINE PHOSPHATASE (BEAKER) (test herm=706) 97 U/L 40-150 AST (SGOT) (BEAKER) (test ggse=382) 27 U/L 5-34 ALT (SGPT) (BEAKER) (test fyab=764) 22 U/L 6-55 LACTIC ACID, VENOUS, WHOLE [id number] 07:13:00 Test Item Value Reference Range Comments LACTATE BLOOD VENOUS (2) (BEAKER) (test 0.6 mmol/L 0.5-2.2 izll=4896) Effective 02/27/2016: Units/Reference Range ChangeNew: 0.5-2.2 mmol/L Previous: 5 -20 mg/[id number] 00:04:00 Test Item Value Reference Range Comments RPR SCREEN (BEAKER) (test mctf=842) Nonreactive Nonreactive CREATININE, RANDOM [id number] 08:39:00 Test Item Value Reference Range Comments CREATININE URINE (BEAKER) (test fjod=114) 40.2 mg/dL Reference Range: No NormalsSODIUM, RANDOM [id number] 08:39:00 Test Item Value Reference Range Comments SODIUM URINE (BEAKER) (test tzpp=633) 113 meq/L Reference Range: No NormalsURINALYSIS W/ REFLEX URINE [id number] 08:02:00 Test Item Value Reference Range Comments COLOR (BEAKER) (test atwt=939) Light Yellow CLARITY (BEAKER) (test ygnt=272) Clear SPECIFIC GRAVITY UA (BEAKER) (test mkrw=703) 1.007 1.001-1.035 PH UA (BEAKER) (test ypyz=389) 5.0 5.0-8.0 PROTEIN UA (BEAKER) (test qbrg=146) Negative Negative GLUCOSE UA (BEAKER) (test oyta=451) Negative Negative KETONES UA (BEAKER) (test ygrr=382) 10 mg/dL Negative BILIRUBIN UA (BEAKER) (test lmbj=505) Negative Negative BLOOD UA (BEAKER) (test yadg=926) Negative Negative NITRITE UA (BEAKER) (test tfmg=917) Negative Negative LEUKOCYTE ESTERASE UA (BEAKER) (test yzlo=828) Negative Negative UROBILINOGEN UA (BEAKER) (test tcej=233) 0.2 mg/dL 0.2-1.0 RBC UA (BEAKER) (test kioe=168) 0 /HPF WBC UA (BEAKER) (test vwjw=994) < /HPF MUCUS (BEAKER) (test lwik=7671) Rare SQUAMOUS EPITHELIAL (BEAKER) (test yupm=471) < /HPF SOURCE(BEAKER) (test mnfh=4803) BASIC METABOLIC [id number] 06:50:00 Test Item Value Reference Range Comments SODIUM (BEAKER) (test 138 meq/L 136-145 owjp=267) POTASSIUM (BEAKER) (test 4.3 meq/L 3.5-5.1 etwi=200) CHLORIDE (BEAKER) (test 106 meq/L 98-107 xxab=959) CO2 (BEAKER) (test 18 meq/L 22-29 dbli=388) BLOOD UREA NITROGEN 31 mg/dL 7-21 (BEAKER) (test wlgn=756) CREATININE (BEAKER) (test 1.08 mg/dL 0.57-1.25 pjgf=067) GLUCOSE RANDOM (BEAKER) 114 mg/dL 70-105 (test cdbl=329) CALCIUM (BEAKER) (test 9.7 mg/dL 8.4-10.2 xrsg=951) EGFR (BEAKER) (test mL/min/1.73 sq m INSUFFICIENT CLINICAL DATA bzxj=1589) TO CALCULATE ESTIMATED GFR. TSH/FREE T4 IF [id number] 06:43:00 Test Item Value Reference Range Comments THYROID STIMULATING HORMONE (BEAKER) (test 1.57 uIU/mL 0.35-4.94 zhsj=381) [id number] 06:08:00 Test Item Value Reference Range Comments MAGNESIUM (BEAKER) (test ovge=250) 2.0 mg/dL 1.6-2.6 HEPATIC FUNCTION [id number] 06:08:00 Test Item Value Reference Range Comments TOTAL PROTEIN (BEAKER) (test kgis=441) 7.0 gm/dL 6.0-8.3 ALBUMIN (BEAKER) (test hsno=8582) 4.0 g/dL 3.5-5.0 BILIRUBIN TOTAL (BEAKER) (test kiuq=101) 0.7 mg/dL 0.2-1.2 BILIRUBIN DIRECT (BEAKER) (test fesj=578) 0.3 mg/dL 0.1-0.5 ALKALINE PHOSPHATASE (BEAKER) (test kzhf=987) 107 U/L 40-150 AST (SGOT) (BEAKER) (test rebf=630) 45 U/L 5-34 ALT (SGPT) (BEAKER) (test thbv=309) 32 U/L 6-55 CBC W/PLT COUNT & AUTO [id number] 05:18:00 Test Item Value Reference Range Comments WHITE BLOOD CELL COUNT (BEAKER) (test xzgj=509) 4.7 K/ L 3.5-10.5 RED BLOOD CELL COUNT (BEAKER) (test nhia=342) 3.59 M/ L 3.93-5.22 HEMOGLOBIN (BEAKER) (test vlmq=870) 12.5 GM/DL 11.2-15.7 HEMATOCRIT (BEAKER) (test ivtw=590) 36.9 % 34.1-44.9 MEAN CORPUSCULAR VOLUME (BEAKER) (test rqfq=165) 102.8 fL 79.4-94.8 MEAN CORPUSCULAR HEMOGLOBIN (BEAKER) (test 34.8 pg 25.6-32.2 befc=254) MEAN CORPUSCULAR HEMOGLOBIN CONC (BEAKER) (test 33.9 GM/DL 32.2-35.5 zlwn=292) RED CELL DISTRIBUTION WIDTH (BEAKER) (test 12.9 % 11.7-14.4 qxcq=985) PLATELET COUNT (BEAKER) (test xlzf=776) 193 K/CU MM 150-450 MEAN PLATELET VOLUME (BEAKER) (test puqm=113) 10.2 fL 9.4-12.3 NUCLEATED RED BLOOD CELLS (BEAKER) (test 0 /100 WBC 0-0 hxgi=381) NEUTROPHILS RELATIVE PERCENT (BEAKER) (test 62 % jmkb=405) LYMPHOCYTES RELATIVE PERCENT (BEAKER) (test 22 % kkxr=685) MONOCYTES RELATIVE PERCENT (BEAKER) (test 10 % zgpp=694) EOSINOPHILS RELATIVE PERCENT (BEAKER) (test 3 % meya=408) BASOPHILS RELATIVE PERCENT (BEAKER) (test 1 % eeft=539) NEUTROPHILS ABSOLUTE COUNT (BEAKER) (test 2.93 K/ L 1.56-6.13 vyke=282) LYMPHOCYTES ABSOLUTE COUNT (BEAKER) (test 1.05 K/ L 1.18-3.74 qanf=963) MONOCYTES ABSOLUTE COUNT (BEAKER) (test 0.49 K/ L 0.24-0.36 bumx=886) EOSINOPHILS ABSOLUTE COUNT (BEAKER) (test 0.15 K/ L 0.04-0.36 cbya=030) BASOPHILS ABSOLUTE COUNT (BEAKER) (test 0.06 K/ L 0.01-0.08 weap=480) IMMATURE GRANULOCYTES-RELATIVE PERCENT (BEAKER) 0 % 0-1 (test fjby=1170)
--- NOTE | 2018-06-05 16:08 | ER ---
Nurse's Notes [facility] Name: Ada Huerat Age: 67 yrs Sex: Female : 1950 Arrival Date: 06/05/2018 Time: 15:00 Bed 15 Private MD: Diagnosis: Presentation: 06/05 15:00 Presenting complaint: EMS states: Patient showed up at fire station stating that she kr2 needed a ride home because she is not supposed to be driving. She was anxious and rambling. Her blood pressure was 168/120. She has a history of hypertension and hypothyroidism. Transition of care: patient was not received from another setting of care. Onset of symptoms was June 05, 2018. Risk Assessment: Do you want to hurt yourself or someone else? Patient reports no desire to harm self or others. Initial Sepsis Screen: Does the patient meet any 2 criteria? No. Patient's initial sepsis screen is negative. Does the patient have a suspected source of infection? No. Patient's initial sepsis screen is negative. Care prior to arrival: None. 15:00 Method Of Arrival: EMS: [facility] kr2 15:00 Acuity: ELIZ 3 kr2 15:[address] Mckay is primary care provider. kr2 Triage Assessment: 15:05 General: Appears in no apparent distress. comfortable, slender, well developed, kr2 Behavior is cooperative, crying, restless, Rambling. Able to answer questions appropriately regarding who she is, where she lives, situation, etc. Poor focus, jumps from topic to topic. Very anxious, crying off and on. . Pain: Denies pain. EENT: Oral mucosa is moist. Neuro: Level of Consciousness is awake, alert, obeys commands, Oriented to person, place, time, situation. Cardiovascular: Capillary refill < 3 seconds in bilateral fingers Patient's skin is warm and dry. Respiratory: Airway is patent Respiratory effort is even, unlabored, Respiratory pattern is regular, symmetrical. GI: Abdomen is flat, non-distended. : Denies burning with urination. Derm: Skin is intact, with poor turgor Skin is pink, warm \T\ dry. Musculoskeletal: Circulation, motion, and sensation intact. Historical: - Allergies: 15:04 No Known Allergies; kr2 - Home Meds: 15:04 Lisinopril Oral [Active]; levothyroxine oral [Active]; kr2 - PMHx: 15:04 Anxiety; Hypertension; Hypothyroidism; kr2 - PSHx: 15:04 None; kr2 - Immunization history:: Adult Immunizations unknown. - Social history:: Smoking status: Patient/guardian denies using tobacco. - Ebola Screening: : Patient negative for fever greater than or equal to 101.5 degrees Fahrenheit, and additional compatible Ebola Virus Disease symptoms Patient denies exposure to infectious person Patient denies travel to an Ebola-affected area in the 21 days before illness onset No symptoms or risks identified at this time. Screenin:05 Abuse screen: Denies threats or abuse. Denies injuries from another. Nutritional kr2 screening: No deficits noted. Tuberculosis screening: No symptoms or risk factors identified. Fall Risk None identified. Assessment: 15:11 General: See triage assessment. kr2 15:40 Reassessment: Patient refused to have any labs or medical tests or procedures kr2 performed. Provider notified. Patient provided the name of a friend, Joanna Rodriguez and patient asked that I call her at [phone]. 16:02 Reassessment: Attempted to call patient's friend as she requested, no answer or return kr2 call from provided number. Patient became agitated and got up and said I don't want anything I am leaving. Provider notified. Vital Signs: 15:08 BP 164 / 87; Pulse 107; Resp 17; Temp 98.2; Pulse Ox 99% on R/A; Weight 51.26 kg (R); kr2 Height 5 ft. 3 in. (160.02 cm); Pain 0/10; 15:08 Body Mass Index 20.02 (51.26 kg, 160.02 cm) kr2 ED Course: 15:00 Patient arrived in ED. kr2 15:03 Triage completed. kr2 15:04 Archana Jain NP is PHCP. pm1 15:04 Cole Hopper MD is Attending Physician. pm1 15:07 Arm band placed on right wrist. kr2 15:07 Patient has correct armband on for positive identification. Bed in low position. Call kr2 light in reach. Side rails up X2. Pulse ox on. NIBP on. Noise minimized. Warm blanket given. Head of bed elevated. 15:25 Daniel, Nay, RN is Primary Nurse. kr2 15:46 Radiology exam delayed due to pt refusing,on hold \T\ this time per archana jain np. kw1 16:04 No provider procedures requiring assistance completed. Patient did not have IV access kr2 during this emergency room visit. Administered Medications: No medications were administered Outcome: 16:04 Eloped from patient exam room, after seeing physician Time discovered patient gone: kr2 June 05, 2018 at 16:04 16:04 Condition: eloped, no s/sx of distress 16:08 Patient left the ED. kr2 Signatures: Archana Jain NP SUBSTATION DESIGN DRAFTSPERSON pm1 Nay Sanchez RN RN kr2 Keyana Saldivar kw1 Corrections: (The following items were deleted from the chart) 15:09 15:00 Presenting complaint: EMS states: Patient showed up at fire station stating that kr2 she needed a ride home because she is not supposed to be driving. She was anxious and rambling. Her blood pressure was 168/120. She has a history of hypertension and hypothyroidism kr2 15:11 15:05 General: Appears in no apparent distress. comfortable, slender, well developed, kr2 Behavior is cooperative, crying, restless, Rambling. kr2 20:08 15:40 Reassessment: Patient refused to have any labs or medical tests performed. kr2 Provider notified. Patient provided the name of a friend, Joanna Rodriguez and patient asked that I call her at [phone] kr2
[2018-06-05 16:19] VITALS: BP 164/87; TEMP 98.2; O2SAT 99
--- NOTE | 2018-06-06 16:08 | EDPHYS ---
Physician Documentation [facility] Name: Ada Huerta Age: 67 yrs Sex: Female : 1950 Arrival Date: 06/05/2018 Time: 15:00 Bed 15 Private MD: ED Physician Cole Hopper HPI: 06/05 15:23 This 67 yrs old Female presents to ER via EMS with complaints of no complaint.pm1 15:23 The patient presents to the emergency department with no complaints, but patient pm1 appears paranoid. Past psychiatric history: Prior diagnosis: no previous psychiatric diagnosis known, Psychiatric medications include: none, Primary psychiatric physician: the patient does not have a primary psychiatric physician. Associated signs and symptoms: Pertinent negatives: chest pain, nausea, shortness of breath, vomiting. The patient has experienced a previous episode, approximately 2 months ago. The patient has not recently seen a physician, the patient's primary care provider is Dr. Mckay. Patient drove to [place] requesting a ride home. She was feeling anxious and did not feel comfortable driving the rest of the way home. On arrival to the ER, the patient does not have any complaints. Patient is not homicidal or suicidal . Historical: - Allergies: 15:04 No Known Allergies; kr2 - Home Meds: 15:04 Lisinopril Oral [Active]; levothyroxine oral [Active]; kr2 - PMHx: 15:04 Anxiety; Hypertension; Hypothyroidism; kr2 - PSHx: 15:04 None; kr2 - Immunization history:: Adult Immunizations unknown. - Social history:: Smoking status: Patient/guardian denies using tobacco. - Ebola Screening: : Patient negative for fever greater than or equal to 101.5 degrees Fahrenheit, and additional compatible Ebola Virus Disease symptoms Patient denies exposure to infectious person Patient denies travel to an Ebola-affected area in the 21 days before illness onset No symptoms or risks identified at this time. ROS: 15:23 Constitutional: Negative for fever, chills, and weight loss, Eyes: Negative for injury, pm1 pain, redness, and discharge, ENT: Negative for injury, pain, and discharge, Neck: Negative for injury, pain, and swelling, Cardiovascular: Negative for chest pain, palpitations, and edema, Respiratory: Negative for shortness of breath, cough, wheezing, and pleuritic chest pain, Abdomen/GI: Negative for abdominal pain, nausea, vomiting, diarrhea, and constipation, Back: Negative for injury and pain, : Negative for injury, bleeding, discharge, and swelling, MS/Extremity: Negative for injury and deformity, Skin: Negative for injury, rash, and discoloration, Neuro: Negative for headache, weakness, numbness, tingling, and seizure. 15:23 Psych: Negative for auditory hallucinations, visual hallucinations, homicidal ideation, suicide gesture, suicidal ideation. Exam: 15:23 Constitutional: This is a well developed, well nourished patient who is awake, alert, pm1 and in no acute distress. Head/Face: Normocephalic, atraumatic. Eyes: Pupils equal round and reactive to light, extra-ocular motions intact. Lids and lashes normal. Conjunctiva and sclera are non-icteric and not injected. Cornea within normal limits. Periorbital areas with no swelling, redness, or edema. ENT: Nares patent. No nasal discharge, no septal abnormalities noted. Tympanic membranes are normal and external auditory canals are clear. Oropharynx with no redness, swelling, or masses, exudates, or evidence of obstruction, uvula midline. Mucous membranes moist. Neck: Trachea midline, no thyromegaly or masses palpated, and no cervical lymphadenopathy. Supple, full range of motion without nuchal rigidity, or vertebral point tenderness. No Meningismus. Chest/axilla: Normal chest wall appearance and motion. Nontender with no deformity. No lesions are appreciated. Cardiovascular: Regular rate and rhythm with a normal S1 and S2. No gallops, murmurs, or rubs. Normal PMI, no JVD. No pulse deficits. Respiratory: Lungs have equal breath sounds bilaterally, clear to auscultation and percussion. No rales, rhonchi or wheezes noted. No increased work of breathing, no retractions or nasal flaring. Abdomen/GI: Soft, non-tender, with normal bowel sounds. No distension or tympany. No guarding or rebound. No evidence of tenderness throughout. Back: No spinal tenderness. No costovertebral tenderness. Full range of motion. Skin: Warm, dry with normal turgor. Normal color with no rashes, no lesions, and no evidence of cellulitis. MS/ Extremity: Pulses equal, no cyanosis. Neurovascular intact. Full, normal range of motion. 15:23 Psych: Behavior/mood is cooperative, Affect is animated, Oriented to person, place, time, Patient has no thoughts/intents to harm self or others. Memory is normal. Patient appears to have some paranoia. Vital Signs: 15:08 BP 164 / 87; Pulse 107; Resp 17; Temp 98.2; Pulse Ox 99% on R/A; Weight 51.26 kg (R); kr2 Height 5 ft. 3 in. (160.02 cm); Pain 0/10; 15:08 Body Mass Index 20.02 (51.26 kg, 160.02 cm) kr2 MDM: 15:04 Patient medically screened. pm1 15:23 Data reviewed: vital signs. Data interpreted: Pulse oximetry: on room air is 99 %. pm1 Interpretation: normal. 16:05 Refusal of service: The patient/guardian displays adequate decision making capability pm1 and despite a detailed discussion of alternatives, benefits, risks, and consequences refuses: Admission to the hospital for further work-up and treatment, CT Scan, all lab tests, Patient does not want lab work, CT scans, or EKG. Patient is not suicidal or homicidal and she is AAO x 4. Patient wants to go home. 16:10 ED course: Impression: Unspecified paranoid state. pm1 06/05 15:22 Order name: EKG - Nurse/Tech pm1 06/05 15:22 Order name: IV Saline Lock pm1 06/05 15:22 Order name: Labs collected and sent pm1 06/05 15:22 Order name: Urine Dipstick-Ancillary (obtain specimen) pm1 Administered Medications: No medications were administered Disposition: 06/06 07:10 Co-signature as Attending Physician, Cole Hopper MD. rn Disposition: 06/05/18 16:08 Patient left the facility after being seen by provider. - Patient left due to (see nurse's notes). Signatures: Dispatcher [employer] EDMS Cole Hopper MD MD rn Marinas, Patrick, MORTEZA SUPERVISOR [employer] pm1 Nay Sanchez RN RN kr2
== END 2018-06-05 16:08 | disposition left against medical advice (07) ==
LOC: ER 14:46
DX: F22 Delusional disorders (principal); I10 Essential (primary) hypertension; E03.9 Hypothyroidism, unspecified; F41.9 Anxiety disorder, unspecified
CPT/HCPCS: 99283